=== PATIENT | female | born 1975 | race Caucasian/White ===

== ENCOUNTER 2018-03-12 16:25 | Emergency (ER) | payer MEDICAID ==
[~2018-03-12] VITALS: Ht 152.4 cm; Wt 92.0 kg
[2018-03-12 17:01] LABS: BASOPHILS % 0.4 % (0.0-2.0); EOSINOPHILS % 2.3 % (0.0-5.0); HEMATOCRIT. 36.4 % (36.0-48.0); LYMPHOCYTES % 21.2 % (20.0-50.0); MEAN CORPUSCULAR HEMOGLOBIN 27.4 pg (28.0-32.0); MEAN CORPUSCULAR VOLUME 82.7 fL (81.0-99.0); MEAN PLATELET VOLUME 9.9 fl (7.4-10.4); MONOCYTES % 6.3 % (2.0-8.0); NEUTROPHILS % 69.8 % (40.0-76.0); PLATELET 262 x1000/uL (130-400); RED CELL DISTRIBUTION WIDTH 13.6 % (11.6-14.6)
[2018-03-12 17:08] LABS: CHLORIDE 104 mEq/L (98-107)
[2018-03-12 17:15] LABS: HCG SCREEN NEGATIVE
[2018-03-12 17:22] LABS: CLARITY URINE TURBID (CLEAR); COLOR URINE RED (YELLOW); KETONES URINE 1+ (NEGATIVE); LEUKOCYTE ESTERASE URINE 2+ (NEGATIVE); NITRITE URINE POSITIVE (NEGATIVE); OCCULT BLOOD URINE 3+ (NEGATIVE); PROTEIN URINE 2+ (NEGATIVE); SPECIFIC GRAVITY URINE 1.012 (1.005-1.030); UROBILINOGEN URINE 0.2 E.U./dL (0.2-1.0)
[2018-03-12] MEDS ORDERED: NITROFURANTOIN 100MG M/M CAPSULE PO ONE (18:30)
[2018-03-12] MEDS ORDERED: IBUPROFEN 800MG TABLET PO ONE (18:30)
[2018-03-12] MEDS ORDERED: NITROFURANTOIN 100MG M/M CAPSULE PO SCH (18:49)
[2018-03-12 18:59] VITALS: BP 134/98
== END 2018-03-12 19:04 | disposition home or self-care (01) ==
LOC: ER 16:25
DX: N93.8 Other specified abnormal uterine and vaginal bleeding (principal); N30.90 Cystitis, unspecified without hematuria; N83.202 Unspecified ovarian cyst, left side
CPT/HCPCS: 36415; 76830; 76856; 80053; 81003; 84703; 85025; 86850; 86900; 99285